=== PATIENT | female | born 1960 | race Caucasian/White ===

== ENCOUNTER 2023-01-25 06:17 | Day surgery (SDC) | payer OTHER, SELFPAY ==
[2023-01-23 10:04] VITALS: BMI 27.6
--- NOTE | 2023-01-24 10:06 | P.CONAN_ITS ---
Documented by User: Viviana Beth NP 01/24/23 10:06 HPI - Anesthesia Eval Consult details Narrative: 62yo F for Colonoscopy [facility] Past Medical History Medical History Elevated cholesterol Frontal fibrosing alopecia Surgical History Surgical History Hx of hysterectomy History of H/O colonoscopy Social History Social History (Updated 01/23/23 @ 10:03 by Roxanne Rodriguez RN) Patient Tobacco Use Status: Former Tobacco user Quit Date: >10 yr ago Tobacco use type: Cigarette Substance Use Frequency: Occasionally Have you been hit, kicked, punched, or otherwise hurt by someone within the past year? If so, by whom?: No Are you DNR?: No Advance Directives: No Advance Directives Information Provided: Yes Recently lost weight without trying: No Eating poorly because of decreased appetite: No Nutrition Risks: No Nutritional Risk Patient : No Meds Allergies Allergy/AdvReac Type Severity Reaction Status Date / Time No Known Allergies Allergy Unverified 01/22/23 13:57 Home Medications Medication Instructions Recorded Confirmed Last Taken Type atorvastatin 10 mg tablet 10 mg PO DAILY 01/23/23 01/23/23 Unknown History baricitinib 4 mg tablet (Olumiant) 4 mg PO DAILY 01/23/23 01/23/23 Unknown History minoxidil 2.5 mg tablet 2.5 mg PO DAILY 01/23/23 01/23/23 Unknown History Exam Exam Date and Time: January 24, 2023 1006 Height,Weight and Vital Signs: Height 5 ft 4 in Weight 73.028 kg Assessment and Plan Assessment Anesthesia Assessment: Chart Reviewed Documented by User: Arthur Mancilla MD 01/25/23 07:54 [facility] Past Medical History Medical History Elevated cholesterol Frontal fibrosing alopecia Family History Family history of problems with anesthesia: No Surgical History Surgical History Hx of hysterectomy History of H/O colonoscopy History of Problems with Anesthesia: No Social History Social History (Updated 01/23/23 @ 10:03 by Roxanne Rodriguez RN) Patient Tobacco Use Status: Former Tobacco user Quit Date: >10 yr ago Tobacco use type: Cigarette Substance Use Frequency: Occasionally Have you been hit, kicked, punched, or otherwise hurt by someone within the past year? If so, by whom?: No Are you DNR?: No Advance Directives: No Advance Directives Information Provided: Yes Recently lost weight without trying: No Eating poorly because of decreased appetite: No Nutrition Risks: No Nutritional Risk Patient : No Meds Allergies Allergy/AdvReac Type Severity Reaction Status Date / Time No Known Allergies Allergy Unverified 01/22/23 13:57 Home Medications Medication Instructions Recorded Confirmed Last Taken Type atorvastatin 10 mg tablet 10 mg PO DAILY 01/23/23 01/23/23 Unknown History baricitinib 4 mg tablet (Olumiant) 4 mg PO DAILY 01/23/23 01/23/23 Unknown History minoxidil 2.5 mg tablet 2.5 mg PO DAILY 01/23/23 01/23/23 Unknown History Exam Airway Mallampati Class: II TM Dist: >3cm Heart: rrr Lungs: cta Assessment and Plan Assessment Anesthesia Assessment: Anesthesia Plan Discussed Final Anesthetic Review Family History of Problems with Anesthesia: No History of Problems with Anesthesia: No ASA Class: I Final Preanesthetic Review: No Changes in Pt Med Stat, Meds/Allgs Chart Rev iewed, Consent Obtained/Reviewed and Anes Risks/Benef Reviewed Patient Risk: Low Procedure Risk: Low Anesthetic Plan Anesthetic Plan: MAC: and Agree w/ Assess. and Plan Disposition: Standard PACU
--- OUTSIDE RECORDS SUMMARY | 2023-01-25 06:19 | XMS_ITS | Continuity of Care Document ---
Author Name Unknown Organization [facility] Address [address] [place] [address]- Care Team Providers Care Environmental Engineer Scientist Name Role Phone Christoph BEGUM, Josse Venegas Primary Care Physician Encounter 08/30/19 - 09/06/19 [facility] [address], [facility] [address] [place] [address]- [phone] Attending Physician: Josse Hawthorne MD Admitting Physician: Josse Hawthorne MD Referring Physician: Josse Hawthorne MD Allergies, Adverse Reactions, Alerts Substance Reaction Severity Status NKA Active Results Radiology Reports * Exam Date Time Procedure Performing Provider Status 08/30/19 11:43 AM Dexa Bone Density (A xial) with VFA [place] (Verified) Notes: (Dexa Bone Density (Axial) with VFA) Reason For Exam: S32.010A COMPRESSION FX L1 VERTEBRA RESULT: DEXA BONE DENSITY (AXIAL) WITH VFA Bone Density and Vertebral Assessment Report Name: JOSE EDUARDO MEJIA Age: 58 Sex: Female Ethnicity: White Date of : 1960 Indication: L1 COMPRESSION FRACTURE. POSTMENOPAUSAL. UNAPPROVED height loss; Referring Provider: JOSSE HAWTHORNE MD Study: Bone densitometry and vertebral deformity assessment were performed. Exam Date: August 30, 2019 Accession number: [id number] Bone Density: Region BMD T-score Z-score Classification AP Spine (L1, L2) 0.822 -1.4 -0.2 Osteopenia Femoral Neck (Left) 0.775 -0.7 0.6 Normal Total Hip (Left) 0.921 -0.2 0.7 Normal World Health Organization criteria for BMD impression classify patients as: Normal (T-score at or above -1.0), Osteopenia (T-score between -1.0 and -2.5), or Osteoporosis (T-score at or below -2.5). 10-year Fracture Risk(1): Major Osteoporotic Fracture 6.4% Hip Fracture 0.3% Reported Risk Factors: [place] (), Neck BMD=0.775, BMI=28.3 (1) FRAX(R) Version 3.08. Fracture probability calculated for an untreated patient. Fracture probability may be lower if the patient has received treatment. Vertebral Deformity Assessment: Exam date 08/30/2019 Vertebral Level Impression A spine fracture indicates 5X risk for subsequent spine fracture and 2X risk for subsequent hip fracture. Clinical Information Provided by Patient: Has used the following medications: Vitamin D Has the following medical conditions: Hysterectomy Patient maximum height was 65.0 Menopause Age: 54 Onset of menses at age 13 Number of children 3 Impression: The patient has osteopenia as determined by WHO criteria. No vertebral fractures are identified. The VFA is normal. Note: VFA is designed to detect vertebral fractures and not other abnormalities. Based on the results of the patient???s bone density assessment, the risk of future fracture increases approximately two fold for each 1.0 SD decrease in T-score. However, low BMD is not the only risk factor for a future fragility fracture. Other clinical risk factors for osteoporotic fracture should be considered in ascertaining this patient???s future fracture risk including the patient???s age, previous osteoporotic (fragility) fracture, estrogen deficiency/hypogonadism, risk of falling, use of medications implicated in bone loss (glucocorticoids), family history of osteoporotic fracture, diseases and conditions associated with bone loss, low body weight, smoking, high bone turnover, etc. Combining low BMD and other clinical risk factors result in a more precise assessment of future fracture risk. Secondary causes for osteoporosis, such as osteomalacia, other metabolic bone disorders, and diseases and conditions that may contribute to accelerated bone loss may have to be considered depending on the clinical situation. A repeat bone density assessment should be considered in two years. Reported by: Tootie Magana M.D. on 09/02/2019 11:14:00 AM. Dictated By: Tootie Magana MD Dictated Date/Time: 09/02/19 11:15 a Reviewed By: Tootie Magana MD Signed By: Tootie Magana MD Signed Date/Time: 09/02/19 11:15 am Transcribed By: ROXANNA Transcribed Date/Time: 09/02/19 11:15 am Social History Social History Type Response Smoking Status Former smoker; Other : quit 25 years ago; entered on: 09/15/15 Sex
--- OUTSIDE RECORDS SUMMARY | 2023-01-25 06:19 | XMS_ITS | Continuity of Care Document ---
Author Name Unknown Organization [facility] Address [address] [facility] [place] [address]- Care Team Providers Care Instructional Design Consultant Name Role Phone Asuncion BEGUM, Patrick Carlson Primary Care Physician [phone] Encounter 12/26/22 - 01/02/23 [facility] [address] [facility], [address] [place] [address]- [place] Attending Physician: Nela Parra NP Admitting Physician: Nela Parra NP Referring Physician: Nela Parra NP Allergies, Adverse Reactions, Alerts No Known Allergies Results Radiology Reports * Exam Date Time Procedure Performing Provider Status 12/26/22 10:39 AM US Breast Bilat Complete Screen Trina Henry; Modified Notes: (US Breast Bilat Complete Screen) Reason For Exam: FAMILY HISTORY OF BREAST CANCER,dense RESULT: US Breast Bilat Complete Screen Fl PROCEDURE: SCREENING ULTRASOUND INDICATION: Screening for breast cancer. Heterogeneous parenchymal tissue on recent screening mammography. Sibling history of breast cancer at 60. COMPARISON: Diagnostic exam of the right breast from 2012. Mammography report 11/25/2022. TECHNIQUE: Ultrasound of both breasts was performed. This study includes all four quadrants of eachscanned breast and the retroareolar and axillary regions. FINDINGS: No suspicious masses or other suspicious sonographic findings are seen to suggest malignancy. No adenopathy or other axillary abnormalities are seen. IMPRESSION: No sonographic evidence of malignancy. RECOMMENDATION: Annual mammographic screening Given the patient's family history and increased breast density, continued supplemental screening evaluation should be considered. BI-RADS: 1 (Negative) WSN: [id number] Ordering Physician: Nela Parra Dictated By: Lester Carter MD Dictated Date/Time: 12/26/22 10:42 a Reviewed By: Lester Carter MD Signed By: Lester Carter MD Signed Date/Time: 12/26/22 10:42 am Transcribed By: ROXANNA Transcribed Date/Time: 12/26/22 10:41 am Social History Social History Type Response Smoking Status Former smoker; Other : quit 25 years ago; entered on: 09/15/15 Sex Patient Care team information Care Team Personnel Name: Dania Sher RN Position: S RN Member Role: Primary Care Nurse Name: Jo Ann Delaney RN Position: [facility] OB RN Member Role: Primary Care Nurse Name: Patrick Roland MD Position: [facility] Outreach Member Role: PCP Address: Address: [address] [place] [address] [address] [facility] [place] [address]- Care Team Related Persons Name: PAMELA MEJIA Address: home [address] [place] [id number] Name: CHAN MEJIA Address: [place] [address] Name: HUSSEIN HUGO
--- OUTSIDE RECORDS SUMMARY | 2023-01-25 06:19 | XMS_ITS | Continuity of Care Document ---
Author Name Unknown Organization [facility] Address [address] [facility] [address] [place] [address]- Care Team Providers Care Personal Injury Litigation Paralegal Name Role Phone Patrick Roland MD Primary Care Physician [phone] Encounter 11/05/21 - 11/12/21 [facility] [address], [facility] [address] [place] [address]- [place] Attending Physician: Patrick Roland MD Admitting Physician: Patrick Roland MD Referring Physician: Patrick Roland MD Allergies, Adverse Reactions, Alerts No Known Allergies Social History Social History Type Response Smoking Status Former smoker; Other : quit 25 years ago; entered on: 09/15/15 Sex Care Team Personnel Name: Patrick Roland MD Address: [address] [place] [address] [address] [facility] Weight Management [place], [place] [address]
--- OUTSIDE RECORDS SUMMARY | 2023-01-25 06:19 | XMS_ITS | Continuity of Care Document ---
Author Name Unknown Organization [facility] Address [address] [facility] [place] [address]- Care Team Providers Care Core Assembly Supervisor Name Role Phone Patrick Roland MD Primary Care Physician [phone] Encounter 11/25/22 - 12/02/22 [facility] [address] [facility], [address] [place] [address]- [place] Attending Physician: Patrick Roland MD Admitting Physician: Patrick Roland MD Referring Physician: Patirck Roland MD Allergies, Adverse Reactions, Alerts No Known Allergies Results Radiology Reports * Exam Date Time Procedure Performing Provider Status 11/25/22 11:20 AM MM Digital Mammo Screening Jes Landers (Verified) Notes: (MM Digital Mammo Screening) Reason For Exam: Z12.31 ROUTINE SCREENING RESULT: MM Digital Mammo Screening PROCEDURE: MM Digital Mammo Screening INDICATION: Screening for breast cancer. No known palpable abnormalities. Family history of a sister with breast cancer at 60. COMPARISON: Back to 10/18/2019. TECHNIQUE:Full-field digital CC and MLO 3D tomosynthesis images of both breasts were acquired. Computer-aided detection (CAD) was utilized in the interpretation of this study. DENSITY: Heterogeneously dense, which may obscure masses. Heterogeneous tissue is localized to the retroareolar regions bilaterally, unchanged. FINDINGS: No suspicious masses, microcalcifications, areas of architectural distortion, or skin thickening to suggest malignancy. IMPRESSION: No mammographic evidence of malignancy. RECOMMENDATION: Annual mammographic screening. Given the patient's family history and increased breast density, supplemental screening evaluation should be considered. BI-RADS: 1 (Negative) Lay letter mailed to patient WSN: [id number] Ordering Physician: Patrick Roland Dictated By: Lester Carter MD Dictated Date/Time: 11/25/22 1:55 pm Reviewed By: Lester Carter MD Signed By: Lester Carter MD Signed Date/Time: 11/25/22 1:55 pm Transcribed By: ROXANNA Finish Saw Operator Date/Time: 11/25/22 1:52 pm Birads: Social History Social History Type Response Smoking Status Former smoker; Other : quit 25 years ago; entered on: 09/15/15 Sex Patient Care team information Care Team Personnel Name: Dania Sher RN Position: S RN Member Role: Primary Care Nurse Name: Jo Ann Delaney RN Position: [facility] OB RN Member Role: Primary Care Nurse Name: Patrick Roland MD Position: [facility] Outreach Member Role: PCP Address: Address: [address] [place] [address] [address] [facility] [place] [address]- Care Team Related Persons Name: PAMELA MEJIA Address: [address] [address] Name: CHAN MEJIA Address: [place] [address] Name: HUSSEIN HUGO
--- OUTSIDE RECORDS SUMMARY | 2023-01-25 06:19 | XMS_ITS | Patient Health Record ---
Author Name Unknown Organization [facility] Address [address] [place] [address] Care Team Providers Care Hip Hop Dancer Name Role Phone MANCINI, JAZZY Primary Care Provider Yuriy Munoz Unavailable [phone] ALLERGIES No Known Allergies REASON FOR REFERRAL No Information MEDICATIONS Medication SIG (Take, Route, Frequency, Duration) Notes Start Date End Date Status Vitamin D3 Active Biotin Active Zinc Magnesium Aspartate Active Minoxidil 2.5 MG Oral for 30 A ctive Atorvastatin Calcium 10 MG TAKE 1 TABLET BY MOUTH EVERY DAY Oral for 30 Active Olumiant 4 MG 1 tablet Orally Once a day for 30 day(s) Active IMMUNIZATIONS Vaccine Route Administration Date Status Comme nts Influenza Unknown 04/20/2022 Administered SOCIAL HISTORY Tobacco Use: Social History Observation Description Date Details (start date - stop date) Former Smoker NA - NA Sex Assigned At : Social History Observation Description Sex Assigned At Unknown Tobacco Use/Smoking Question Answer Notes Patient is a former smoker How long has it been since you last smoked? > 10 years Alcohol Screen Question Answer Notes Did you have a drink contain ing alcohol in the past year? Yes How often did you have a dri nk containing alcohol in the past year? Never (0 point) How many drinks did you have on a typical day when you were drinking in the past year? 1 or 2 drinks (0 point) How often did you have 6 or more drinks on one occasion in the past year? Never (0 point) Points 0 Interpretation Negative PROBLEMS Problem Type ICD Code Onset Dates Problem Status W/U Status Risk SNOMED Code Notes Problem History of adenomatous polyp of colon (Z86.010) Active confirmed 978317358 Problem Colon cancer screening (Z12.11) Active confirmed 281247086 Problem Preprocedural examination (Z01.818) Active confirmed [id number] Encounters Encounter Location Date Provider Diagnosis [facility] Outpatient [address] [place] [id number] 11/16/2022 Yuriy Hopson [facility] Outpatient [address] [place] [address] [id number] 01/25/2023 Yuriy Hopson [facility] [address] [place] [phone] 08/11/2022 Yuriy Hopson History of adenomato us polyp of colon Z86.010 ; Preprocedural examination Z01.818 and Colon cancer screening Z12.11 [facility] [address] [place] [phone] 10/03/2022 Yuriy Hopson [facility] [address] [place] [phone] 10/28/2022 Yuriy Hopson ASSESSMENTS Encounter Date Diagnosis Assessment Notes Treatment Notes Treatment Clinical Notes 08/11/2022 History of adenomatous polyp of colon (ICD-10 - Z86.010) 08/11/2022 Preprocedural examination (ICD-10 - Z01.818) 08/11/2022 Colon cancer screening (ICD-10 - Z12.11) PLAN OF TREATMENT Future Test Test Name Order Date COLONOSCOPY 08/11/2022 Next Appt Details Provider Name:Yuriy Hopson , 01/25/2023 07:30:00 AM, [address] [place] [address] , [place], [place], [id number], Insurance Providers Payer Name Payer Address Payer Phone Subscriber Number Group Number Insured Name Patient Relationship to Insured Coverage Start Date Coverage End Date [facility] [address] [place] [address] [id number] JOSE EDUARDO MEJIA Self - patient is the insured MEDICAL (GENERAL) HISTORY Medical History History ICD Code Denies [place],DM,CVA,Lung disease,renal dise ase 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 Jiménez Surgical History Surgery Date(Month/Year) 3 C-sections 1987,1992,1994 Hysterectomy 2016
--- OUTSIDE RECORDS SUMMARY | 2023-01-25 06:19 | XMS_ITS | Continuity of Care Document ---
Author Name Unknown Organization [facility] Address [address] [facility] [address] [place] [address]- Care Team Providers Care Senior Hardware Engineer Name Role Phone Patrick Roland MD Primary Care Physician Encounter 10/20/20 - 10/27/20 [facility] [address], [address] [place] [address]- [place] Attending Physician: Patrick Roland MD Admitting Physician: Patrick Roland MD Referring Physician: Patrick Roland MD Allergies, Adverse Reactions, Alerts Substance Reaction Severity Status NKA Active Social History Social History Type Response Smoking Status Former smoker; Other : quit 25 years ago; entered on: 09/15/15 Sex
--- OUTSIDE RECORDS SUMMARY | 2023-01-25 06:19 | XMS_ITS | Continuity of Care Document ---
Author Name Unknown Organization [facility] Address [address] [facility] [address] [place] [address]- Care Team Providers Care Flosser Name Role Phone Lou Hawthorne MD Primary Care Physician [phone] Encounter 10/18/19 - 10/25/19 [facility] [address], [address] [address]- [phone] Attending Physician: Lou Hawthorne MD Admitting Physician: Lou Hawthorne MD Referring Physician: Lou Hawthorne MD Allergies, Adverse Reactions, Alerts Substance Reaction Severity Status NKA Active Social History Social History Type Response Smoking Status Former smoker; Other : quit 25 years ago; entered on: 09/15/15 Sex
--- OUTSIDE RECORDS SUMMARY | 2023-01-25 06:20 | XMS_ITS | Patient Health Record ---
Author Name Unknown Organization [address] [facility] Address [address] [facility] [address] [place] [address] Care Team Providers Care Orthotic/Prosthetic Practitioner Name Role Phone MANCINI, CARLOS ENRIQUEADELE Unavailable [phone] LIVE JORJE Unavailable [phone] TISHA GARY KIMBERLYN Unavailable ALLERGIES No Known Allergies RESULTS Component Value Reference Range Notes COMPREHENSIVE METABOLIC PANE L Reviewed date:08/23/2022 08:58:09 AM Interpretation: Performing Lab:NL2, [facility] [address] [place], [place] [id number] Anselmo Brown Notes/Report: FASTING: NO FASTING:NO 0; 0; 0; 0 GLUCOSE 88 65-139 mg/dL Non-fasting reference interval UREA NITROGEN (BUN) 11 7-25 mg/dL CREATININE 0.71 0.50-1.05 mg/dL EGFR 97 > OR = 60 mL/min/1.73m2 The eGFR is based on the CKD-EPI 2020 equation. To calculate the new eGFR from a previous Creatinine or Cystatin C result, go to https://www.kidney.org/ professionals/ kdoqi/gfr%5Fcalculator BUN/CREATININE RATIO NOT APPLICABLE 6-22 (calc) SODIUM 141 135-146 mmol/L POTASSIUM 4.1 3.5-5.3 mmol/L CHLORIDE 105 98-110 mmol/L CARBON DIOXIDE 27 20-32 mmol/L CALCIUM 9.2 8.6-10.4 mg/dL PROTEIN, TOTAL 6.5 6.1-8.1 g/dL ALBUMIN 4.3 3.6-5.1 g/dL GLOBULIN 2.2 1.9-3.7 g/dL (calc) ALBUMIN/GLOBULIN RATIO 2.0 1.0-2.5 (calc) BILIRUBIN, TOTAL 0.4 0.2-1.2 mg/dL ALKALINE PHOSPHATASE 54 37-153 U/L AST 25 10-35 U/L ALT 24 6-29 U/L CBC (INCLUDES DIFF/PLT) Reviewed date:08/23/2022 08:58:09 AM Interpretation: Performing Lab:[facility] Anselmo Brown Notes/Report: 0; 0; 0; 0 FASTING:NO FASTING: NO WHITE BLOOD CELL COUNT 5.5 3.8-10.8 Thousand/ uL RED BLOOD CELL COUNT 4.42 3.80-5.10 Million/uL HEMOGLOBIN 13.2 11.7-15.5 g/dL HEMATOCRIT 39.9 35.0-45.0 % MCV 90.3 80.0-100.0 fL MCH 29.9 27.0-33.0 pg MCHC 33.1 32.0-36.0 g/dL RDW 13.1 11.0-15.0 % PLATELET COUNT 286 140-400 Thousand/uL MPV 10.4 7.5-12.5 fL ABSOLUTE NEUTROPHILS [phone] cells/uL ABSOLUTE LYMPHOCYTES 2379 734-0530 cells/uL ABSOLUTE MONOCYTES 528 200-950 cells/uL ABSOLUTE EOSINOPHILS 160 15-500 cells/uL ABSOLUTE BASOPHILS 50 0-200 cells/uL NEUTROPHILS 52.7 LYMPHOCYTES 33.9 MONOCYTES 9.6 EOSINOPHILS 2.9 BASOPHILS 0.9 URINALYSIS, COMPLETE Reviewed date:08/23/2022 09:31:56 AM Interpretation: Performing Lab:[employer] [facility] Anselmo Brown Notes/Report: 0; 0; 0; 0 FASTING:NO FASTING: NO COLOR DARK YELLOW YELLOW APPEARANCE CLOUDY CLEAR SPECIFIC GRAVITY 1.016 1.001-1.035 PH 7.5 5.0-8.0 GLUCOSE NEGATIVE NEGATIVE BILIRUBIN NEGATIVE NEGATIVE KETONES NEGATIVE NEGATIVE OCCULT BLOOD NEGATIVE NEGATIVE PROTEIN NEGATIVE NEGATIVE NITRITE NEGATIVE NEGATIVE LEUKOCYTE ESTERASE 2+ NEGATIVE WBC 6-10 < OR = 5 /HPF RBC 0-2 < OR = 2 /HPF SQUAMOUS EPITHELIAL CELLS 20-40 < OR = 5 /HPF BACTERIA FEW NONE SEEN /HPF HYALINE CAST NONE SEEN NONE SEEN /LPF YEAST FEW NONE SEEN /HPF NOTE This urine was analyzed for the presence of WBC, RBC, bacteria, casts, and other formed elements. Only those elements seen were reported. LIPID PANEL, STANDARD Reviewed date:03/04/2022 09:03:02 AM Interpretation: Performing Lab:NL2, [facility], [address], [place] Anselmo Brown Notes/Report: FASTING: YES FASTING:YES 0; 0; 0 CHOLESTEROL, TOTAL 194 <200 mg/dL HDL CHOLESTEROL 67 > OR = 50 mg/dL TRIGLYCERIDES 119 <150 mg/dL LDL-CHOLESTEROL 105 Reference range: <100 Desirable range <100 mg/dL for primary prevention; <70 mg/dL for patients with CHD or diabetic patients with > or = 2 CHD risk factors. LDL-C is now calculated using the Ashia calculation, which is a validated novel method providing better accuracy than the Friedewald equation in the estimation of LDL-C. Markel SS et al. CASSANDRA. 2013;310(19): 5250-4180 (http://education.Insuritas/faq/FAQ 164) CHOL/HDLC RATIO 2.9 <5.0 (calc) NON HDL CHOLESTEROL 127 <130 mg/dL (calc) For patients with diabetes plus 1 major ASCVD risk factor, treating to a non-HDL-C goal of <100 mg/dL (LDL-C of <70 mg/dL) is considered a therapeutic option. CBC (INCLUDES DIFF/PLT) Reviewed date:03/04/2022 09:00:56 AM Interpretation: Performing Lab:NL2, [facility], [address], [place] Anselmo Brown Notes/Report: 0; 0; 0 FASTING:YES FASTING: YES WHITE BLOOD CELL COUNT 5.9 3.8-10.8 Thousand/ uL RED BLOOD CELL COUNT 4.75 3.80-5.10 Million/uL HEMOGLOBIN 13.8 11.7-15.5 g/dL HEMATOCRIT 41.7 35.0-45.0 % MCV 87.8 80.0-100.0 fL MCH 29.1 27.0-33.0 pg MCHC 33.1 32.0-36.0 g/dL RDW 13.0 11.0-15.0 % PLATELET COUNT 239 140-400 Thousand/uL MPV 10.5 7.5-12.5 fL ABSOLUTE NEUTROPHILS 2903 4183-1658 cells/uL ABSOLUTE LYMPHOCYTES 2112 850-3900 cells/uL ABSOLUTE MONOCYTES 566 200-950 cells/uL ABSOLUTE EOSINOPHILS 248 15-500 cells/uL ABSOLUTE BASOPHILS 71 0-200 cells/uL NEUTROPHILS 49.2 LYMPHOCYTES 35.8 MONOCYTES 9.6 EOSINOPHILS 4.2 BASOPHILS 1.2 HEMOGLOBIN A1c Reviewed date:03/04/2022 09:00:37 AM Interpretation: Performing Lab:NL2, [facility] [address] [place] [address], [address], U[place]bbhhbGD[address] Jeanettenaida Stefany Brown Notes/Report: 0; 0; 0 FASTING:YES FASTING: YES HEMOGLOBIN A1c 5.5 <5.7 % of total Hgb For the purpose of screening for the presence of diabetes: <5.7% Consistent with the absence of diabetes 5.7-6.4% Consistent with increased risk for diabetes (prediabetes) > or =6.5% Consistent with diabetes This assay result is consistent with a decreased risk of diabetes. Currently, no consensus exists regarding use of hemoglobin A1c for diagnosis of diabetes in children. According to [place] Diabetes Association (ADA) guidelines, hemoglobin A1c <7.0% represents optimal control in non- diabetic patients. Different metrics may apply to specific patient populations. Standards of Medical Care in Diabetes(ADA). REASON FOR REFERRAL Reason colonoscopy with Dr. Stephanie umana history of tubular [facility] 2016 Diagnosis 1 Colon cancer screeni ng (Z12.11) Referral Organization [facility] Referring Provider First Name JORJE Referring Provider Last Name LIVE Referring Provider Speciality Internal M edicine Referred Provider Specialty Gastroentero logy Clinical Notes Melonie Knight 2021 11:34:09 AM >waiting for complete office notes to send referral information, Clinton Briscoe 03/10/2022 10:54:11 AM >Received fax Pt scheduled for 07/14/22 @ 9:30 Referral Priority Routine Reason Colonoscopy with Dr. Dhaliwal in [employer] [facility] Diagnosis 1 Screening for rectal cancer (Z12.12) Referral Organization [facility] Referring Provider First Name JAZZY Referring Provider Last Name LIVE Referring Provider Speciality Internal M edicine Referred Provider Specialty Gastroentero logy Clinical Notes Melonie Knight 2022 10:48:26 AM >Adan Aguayo pt prefers to go to Dr. Hopson at [facility] [place] [place], all info sent to [facility] [place] [place]. Referral Priority Routine MEDICATIONS Medication SIG (Take, Route, Frequency, Duration) Notes Start Date End Date Status Atorvastatin Calcium 10 MG 1 tablet Oral ly Once a day for 30 day(s) 11/10/2020 Active Mucinex DM 30-600 MG 1 tablet as needed Orally every 12 hrs for 7 days 12/10/2022 Active Amoxicillin-Pot Clavulanate 875-125 MG 1 tablet Orally every 12 hrs for 7 days 12/10/2022 Active Calcium 600 600 MG 1 tablet with food O rally Twice a day Active Minoxidil 2.5 MG 1 tablet Orally Twic e a day Active Tacrolimus 0.03 % as directed External ly 3 times a day Active Olumiant 4 MG 1 tablet Orally Once a day Active Biotin 1000 MCG as directed Orally Active Vitamin D 50 MCG (1999 UT) 1 tablet Oral ly Once a day Active SOCIAL HISTORY Sex Assigned At : Social History Observation Description Sex Assigned At Unknown PROBLEMS Problem Type ICD Code Onset Dates Problem Status W/U Status Risk SNOMED Code Notes Problem Vitamin deficiency, unspecified (E56.9) Active confirmed Vitamin deficiency (36336204) Problem Hyperlipidemia, unspecified (E78.5) Active confirmed Hyperlipidemia (27461154) Problem Other chronic pain (G89.29) Active confirmed 28167905 Problem Encounter for general adult medical examination without abnormal findings (Z00.00) Active confirmed 208783091 Problem Encounter for screening for diabetes mellitus (Z13.1) Active confirmed 423239066 Problem Mixed hyperlipidemia (E78.2) Active confirmed Mixed hyperlipidemia (401418730) Problem Anxiety (F41.9) Active confirmed Anxiet y (72460485) Problem Depression, unspecified depression type (F32.9) Active confirmed Depressive disorder (disorder) (17423709) Problem Vitamin D deficiency (E55.9) Active confirmed Vitamin D deficiency (24025933) Problem Dyslipidemia (E78.5) Active confirmed Dyslipidemia (810620129) Problem Upper respiratory infection with cough and congestion (J06.9) Active confirmed Acute upper respiratory infection (11714612) Problem Congestion of nasal sinus (R09.81) Active confirmed Congestion of nasal sinus (00984732) VITAL SIGNS Heart Rate 68 /min 12/10/2022 Oximetry 97 % 12/10/2022 Blood pressure diastolic 70 mm Hg 12/10/2022 Height 64 in 12/10/2022 Blood pressure systolic 110 mm Hg 12/10/2022 Weight 164 lbs 12/10/2022 BMI 28.15 kg/m2 12/10/2022 Encounters Encounter Location Date Provider Diagnosis [facility] [address] [place] [address] 11/28/2022 KIMBERLYN GILES [employer]LECT[employer]IC TECH [facility] [address] [place] [address] 03/07/2022 JORJE MANCINI Encounter for genera l adult medical examination without abnormal findings Z00.00 and Dyslipidemia E78.5 [facility] [address] [place] [address] 08/29/2022 KIMBERLYN GILES [employer]LECT[employer] TECH Prediabetes R73.03 ; Dyslipidemia E78.5 and Vitamin D deficiency E55.9 [facility] [address] [place] [address] 12/10/2022 KIMBERLYN GILES ELECTRONIC TECH Cough R05.9 ; Congestion of nasal sinus R09.81 and Upper respiratory infection with cough and congestion J06.9 [facility] [address] [place] [address] 01/26/2022 JAZZY MANCINI [facility] [address] [place] [address] 03/22/2022 JAZZY MANCINI [facility] [address] [address] 11/28/2022 JZAZY MANCINI [facility] [address] [place] [address] 11/29/2022 JAZZY MANCINI Family history of breast cancer Z80.3 [facility] [address] [place] [address] 12/09/2022 JAZZY MANCINI [facility] [address] [place] [address] 12/14/2022 JAZZY MANCINI [facility] [address] [place] [address] 12/24/2022 JAZZY MANCINI ASSESSMENTS Encounter Date Diagnosis Assessment Notes Treatment Notes Treatment Clinical Notes 12/10/2022 Congestion of nasal sinus (ICD-10 - R09.81) 12/10/2022 Cough (ICD-10 - R05.9) 11/29/2022 Family history of breast cancer (ICD-10 - Z80.3) 08/29/2022 Prediabetes (ICD-10 - R73.03) 08/29/2022 Dyslipidemia (ICD-10 - E78.5) 03/07/2022 Encounter for general adult medical examination without abnormal findings (ICD-10 - Z00.00) 03/07/2022 Dyslipidemia (ICD-10 - E78.5) 12/10/2022 Upper respiratory infection with cough and congestion (ICD-10 - J06.9) 08/29/2022 Vitamin D deficiency (ICD-10 - E55.9) PLAN OF TREATMENT Pending Test Test Name Order Date Bone Density 07/05/2021 Bone Density 08/30/2021 Chest 2 Views Frontal and Lat 12/10/2022 US Breast bilat 11/29/2022 LIPID PANEL, STANDARD 08/29/2022 LIPID PANEL, STANDARD 03/07/2022 LIPID PANEL, STANDARD 07/05/2021 LIPID PANEL, STANDARD 11/10/2020 COMPREHENSIVE METABOLIC PANEL 08/29/2022 CBC (INCLUDES DIFF/PLT) 08/29/2022 CBC (INCLUDES DIFF/PLT) 07/05/2021 URINALYSIS, COMPLETE 08/29/2022 HEMOGLOBIN A1c 07/05/2021 HEMOGLOBIN A1c 04/26/2021 HEMOGLOBIN A1c 08/29/2022 INSULIN 08/29/2022 VITAMIN D,25-OH,TOTAL,IA 08/29/2022 Future Test Test Name Order Date HEMOGLOBIN A1C 10/18/2020 LIPID PANEL 10/18/2020 Next Appt Details Provider Name:IMMANUEL BOLIVAR, 02/27/2023 11:15:00 AM, [address], [place], [address], Insurance Providers Payer Name Payer Address Payer Phone Subscriber Number Group Number Insured Name Patient Relationship to Insured Coverage Start Date Coverage End Date [facility] [address] [address] [id number] JOSE EDUARDO MEJIA Self - patient is the insured 3 MEDICAL (GENERAL) HISTORY Medical History History ICD Code depression Surgical History Surgery Date(Month/Year) section hysterectomy
--- OUTSIDE RECORDS SUMMARY | 2023-01-25 06:20 | XMS_ITS | Continuity of Care Document ---
Author Name Unknown Organization [facility] Address [address] [facility] [place] [address]- Care Team Providers Care Qa Lead Name Role Phone Patrick Roland MD Primary Care Physician Encounter 08/30/21 - 09/06/21 [facility] [address] [facility], [address] [place] [address]- us Attending Physician: Patrick Roland MD Admitting Physician: Patrick Roland MD Referring Physician: Patrick Roland MD Allergies, Adverse Reactions, Alerts No Known Allergies Results Radiology Reports * Exam Date Time Procedure Performing Provider Status 08/30/21 3:34 PM Dexa Bone Density (Axial) Tootie Salas (Verified) Notes: (Dexa Bone Density (Axial)) Reason For Exam: screening for osteoporosis RESULT: DEXA BONE DENSITY (AXIAL) Bone Density Report Name: JOSE EDUARDO MEJIA Age: 60 Sex: Female Ethnicity: White Date of : 1960 Indication: POSTMENOPAUSAL. Referring Provider: PATRICK ROLAND Study: Bone densitometry was performed. Exam Date: August 30, 2021 Accession number: [id number] Bone Density: Region BMD T-score Z-score Classification AP Spine (L1, L2) 0.834 -1.3 0.1 Osteopenia Femoral Neck (Left) 0.767 -0.7 0.6 Normal Total Hip (Left) 0.939 0.0 1.0 Normal World Health Organization criteria for BMD impression classify patients as: Normal (T-score at or above -1.0), Osteopenia (T-score between -1.0 and -2.5), or Osteoporosis (T-score at or below -2.5). 10-year Fracture Risk(1): Major Osteoporotic Fracture 7.0% Hip Fracture 0.3% Reported Risk Factors: [place] (), Neck BMD=0.767, BMI=27.5 (1) FRAX(R) Version 3.08. Fracture probability calculated for an untreated patient. Fracture probability may be lower if the patient has received treatment. Previous Exams: Region Exam Age BMD T-score BMD Change BMD Change Date g/cm2 vs Baseline vs Previous AP Spine(L1, L2) 08/30/2021 60 0.834 -1.3 1.5% 1.5% 08/30/2019 58 0.822 -1.4 Total Hip(Left) 08/30/2021 60 0.939 0.0 2.0% 2.0% 08/30/2019 58 0.921 -0.2 Femoral Neck(Left) 08/30/2021 60 0.767 -0.7 -1.1% -1.1% 08/30/2019 58 0.775 -0.7 *Denotes significance at 95% confidence level, LSC for AP Spine = 0.022 g/cm2, LSC for Total Hip = 0.027 g/cm2 Clinical Information Provided by Patient: Has used the following medications: Vitamin D Has the following medical conditions: Hysterectomy Patient maximum height was 64.0 Menopause Age: 55 Onset of menses at age 12 Number of children 3 Impression: The patient has osteopenia as determined by WHO criteria. Based on the results of the patient's bone density assessment, the risk of future fracture increases approximately two fold for each 1.0 SD decrease in T-score. However, low BMD is not the only risk factor for a future fragility fracture. Other clinical risk factors for osteoporotic fracture should be considered in ascertaining this patient's future fracture risk including the patient's age, previous osteoporotic (fragility) fracture, estrogen deficiency/hypogonadism, [...] years. Reported by: Tootie Magana M.D. on 09/03/2021 11:30:00 AM. Dictated By: Tootie Magana MD Dictated Date/Time: 09/03/21 11:31 a Reviewed By: Tootie Magana MD Signed By: Tootie Magana MD Signed Date/Time: 09/03/21 11:31 am Transcribed By: ROXANNA Transcribed Date/Time: 09/03/21 11:31 am Social History Social History Type Response Smoking Status Former smoker; Other : quit 25 years ago; entered on: 09/15/15 Sex
[2023-01-25 06:55] VITALS: BP 124/61; PULSE 66; RESP 18; TEMP 36.1; O2SAT 99
[2023-01-25] MEDS: Lactated Ringers 1,000 ML 100 ML IVCONT (07:00)
[2023-01-25 08:30] VITALS: BP 109/64; PULSE 90; RESP 14; TEMP 36.2; O2SAT 95
--- NOTE | 2023-01-25 08:31 | PM.OP ---
Brief Operative Note Date of Service: 01/25/23 Pre-op diagnosis: Screening Post-op diagnosis: other (Polyps) Procedure: Colonoscopy to the cecum with hot snare polypectomy x 1 in cecum, and bx removal of polyp Surgeon: Yuriy Hopson MD Anesthesia: MAC Was an Hot Molder used for this Procedure?: No Estimated blood loss (mL): 2.0 Pathology: other (A. Cecal polyp B. Polyp at 20cm) Condition: stable Disposition: PACU
[2023-01-25 08:45] VITALS: BP 103/39; PULSE 62; RESP 16; O2SAT 99
--- NOTE | 2023-01-25 09:05 | OP_ITS ---
DATE OF SERVICE: 01/25/2023 SURGEON: Yuriy Hopson MD INDICATIONS: The patient presents for evaluation of personal history of tubular adenoma of the colon and colorectal cancer screening. Full consent has been obtained from her for this, including risks of bleeding and perforation. PREOPERATIVE DIAGNOSIS: Colorectal cancer screening and personal history of tubular adenoma of the colon. POSTOPERATIVE DIAGNOSIS: Colorectal cancer screening and personal history of tubular adenoma of the colon, colon polyps, diverticulosis, and small internal hemorrhoids. PROCEDURE PERFORMED: Colonoscopy to the cecum with hot snare polypectomy, and biopsy removal of polyp. ESTIMATED BLOOD LOSS: COMPLICATIONS: ANESTHESIA: Medication Used: Monitored anesthesia care. ASSISTANTS: SPECIMENS: DESCRIPTION OF PROCEDURE: The patient was placed in the left lateral decubitus position. The digital rectal exam revealed no abnormalities. The Olympus video pediatric colonoscope was entered into the rectum and advanced easily to the cecum. Once in the cecum, I did identify a cecal pouch with appendiceal orifice and a normal-appearing ileocecal valve. The entire cecum was well visualized. In the cecum, was an approximately 10 mm flat, but raised polyp, which was removed by hot snare polypectomy and recovered by suction. The polypectomy site appeared clean, without any sign of residual polyp nor bleeding. The remainder of the cecum appeared normal. The scope was slowly withdrawn, assessing all mucosal surfaces carefully. Preparation was excellent. There was no sign of any colitis nor angiodysplasia. There were several diverticula in the ascending and transverse colon, and a mild amount of diverticulosis in the sigmoid colon. At 20 cm, was a flat, probable hyperplastic, 4 mm polyp, which was biopsied and removed with cold biopsy forceps. I did not visualize any other polyps. In the rectum, scope was retroflexed visualizing small internal hemorrhoids, but no other pathology. The rectal mucosa appeared normal. The scope was straightened and withdrawn from the patient. She tolerated the procedure well and was returned to the recovery area in stable condition. IMPRESSION: 1. Colon polyps. 2. Diverticulosis. 3. Internal hemorrhoids. PLAN: The results of the pathology will be checked. I would recommend a repeat colonoscopy in 5 years. She was advised not to use any aspirin and NSAIDs for 1 week. Yuriy Hopson MD RMW/RIDDHIL / [phone]
[2023-01-25 09:10] VITALS: BP 107/57; PULSE 57; RESP 16; TEMP 36.3; O2SAT 99
== END 2023-01-25 09:47 | disposition home or self-care (01) ==
PROVIDERS: PCP Internal Medicine; Visit Provider Internal Medicine
PROC: 0DJD8ZZ Inspection of Lower Intestinal Tract, Via Natural or Artificial Opening Endoscopic (ICD-10-PCS; CPT 45378; principal; 2023-01-25 07:30)
DX: Z12.11 Encounter for screening for malignant neoplasm of colon (principal); Z86.010 Personal history of colon polyps; D12.0 Benign neoplasm of cecum; K63.5 Polyp of colon; K57.30 Diverticulosis of large intestine without perforation or abscess without bleeding; K64.8 Other hemorrhoids; E78.5 Hyperlipidemia, unspecified; L66.8 Other cicatricial alopecia; Z79.899 Other long term (current) drug therapy; Z87.891 Personal history of nicotine dependence
CPT/HCPCS: 45385; 45380; 88305; J2250